=== PATIENT | female | born 1980 | race Hispanic/Latino ===

== ENCOUNTER 2017-11-24 14:12 | Emergency (ER) | payer OTHER ==
[2017-11-24] MEDS ORDERED: DiphenhydrAMINE 50 mg/ml Inj IV STA ×2 (14:53→17:26)
[2017-11-24] MEDS ORDERED: Sodium Chloride 0.9% 1,000 ML IV STA ×2 (14:53→17:26)
--- NOTE | 2017-11-24 14:55 | ED PDOC ---
HPI: Allergic Reaction Time Seen by Provider: 11/24/17 14:39 Chief Complaint (Nursing): Abdominal Pain Chief Complaint (Provider): abdominal pain and rash History Per: Patient History/Exam Limitations: no limitations Onset/Duration Of Symptoms: Hrs (x2) Current Symptoms Are (Timing): Still Present Context: Food Possible Cause: Food Associated Symptoms: Skin Rash, Itching, Redness. denies: Chest Pain Home/EMS Treatment: Other (zyrtek) Additional Complaint(s): Marjorie Boles is a 37 year old female, with no significant past medical history, who presents to the emergency department via EMS for an allergic reaction and abdominal pain associated with nausea and non-bloody diarrhea onset today. Patient states she might have a stomach virus from her daughter with similar symptoms. Around noon today, she felt nauseous and decided to get some water with lemon. After she drank the water, she felt itchy and developed a rash associated with shortness of breath, tongue and throat swelling. Patient reports she is allergic to Glyphosate and believes there might have been some in the lemon. She took Zyrtec about an hour prior to arrival with relief of shortness of breath, tongue and throat swelling. Patient states she has a history of allergies but hasn't had an episode this severe since she was a child. She denies any chest pain, vomiting, dizziness, numbness, weakness, cough , congestion, runny nose, fever or chills. No further medical complaints. No headaches. No vision changes. Abd pain is like a cramping/bubbling pain. PMD: Dr Mathur Past Medical History Reviewed: Historical Data, Nursing Documentation, Vital Signs Vital Signs: Last Vital Signs Temp 96.8 F L 11/24/17 14:13 Pulse 95 H 11/24/17 14:13 Resp 16 11/24/17 14:13 BP 94/64 L 11/24/17 14:13 Pulse Ox 96 11/24/17 14:13 - Medical History PMH: No Chronic Diseases - Surgical History Surgical History: No Surg Hx - Family History Family History: States: No Known Family Hx - Allergies Allergies/Adverse Reactions: Allergies Allergy/AdvReac Type Severity Reaction Status Date / Time No Known Allergies Allergy Verified 11/24/17 14:24 Review of Systems ROS Statement: Except As Marked, All Systems Reviewed And Found Negative Constitutional: Negative for: Fever, Chills ENT: Negative for: Nose Congestion, Mouth Swelling, Throat Swelling Respiratory: Negative for: Cough, Shortness of Breath Gastrointestinal: Positive for: Nausea, Abdominal Pain, Diarrhea (non bloody). Negative for: Vomiting Skin: Positive for: Rash (itchy ) Neurological: Negative for: Weakness, Numbness, Dizziness Physical Exam - Reviewed Nursing Documentation Reviewed: Yes Vital Signs Reviewed: Yes - Physical Exam Appears: Positive for: Non-toxic Head Exam: Positive for: ATRAUMATIC, NORMOCEPHALIC Skin: Positive for: Warm, Dry, Rash (Blanching erythema to chest, abdomen, back and face in urticarial pattern. Diffusely spreading to body in patches but no erythema from the knees down bilaterally. Non-tender, no induration or discharge.) Eye Exam: Positive for: Normal appearance, EOMI, PERRL ENT: Positive for: Normal ENT Inspection. Negative for: Other (Mouth or lip swelling) Neck: Positive for: Painless ROM, Supple Cardiovascular/Chest: Positive for: Regular Rate, Rhythm. Negative for: Murmur Respiratory: Positive for: Normal Breath Sounds (clear to auscultation bilaterally). Negative for: Respiratory Distress Gastrointestinal/Abdominal: Positive for: Normal Exam, Soft. Negative for: Tenderness Back: Negative for: L CVA Tenderness, R CVA Tenderness, Vertebral Tenderness Extremity: Positive for: Normal ROM (upper and lower extremities). Negative for : Tenderness, Deformity, Swelling Neurologic/Psych: Positive for: Alert, Oriented. Negative for: Motor/Sensory Deficits - Laboratory Results Result Diagrams: 11/24/17 15:08 11/24/17 15:08 Interpretation Of Abn Labs: 18.5 wbc, 17.5 hg, 23 bun - ECG O2 Sat by Pulse Oximetry: 96 (RA) Pulse Ox Interpretation: Normal - Progress ED Course And Treament: 1640: Feels much better. Still does not want any steroids. Tolerated PO. Wants to go home. No dyspnea, tongue or throat swelling. No pain. AAOx3. WBC increase likely from allergy and diarrhea viral infection. Disposition - Clinical Impression Clinical Impression: Diarrhea, Allergic reaction, Hypokalemia, Dehydration - Patient ED Disposition Is Patient to be Admitted: No Counseled Patient/Family Regarding: Studies Performed, Diagnosis, Need For Followup, Rx Given - Disposition Referrals: [facility] [Outside] - 11/25/17 Disposition: Routine/Home Disposition Time: 16:42 Condition: STABLE Additional Instructions: Return if not better in 3 days. Instructions: Diarrhea in Adolescents and Adults, Dehydration, Adult (DC), Hypokalemia (DC), Hives (DC) Forms: [employer] (Syriac) Medical Decision Making Medical Decision Making: Time: 14:39 Initial Impression: allergic reaction and abdominal pain Initial Plan: --BMP --CBC w/ differential --Benadryl 25 mg IV --Sodium Chloride 1,000 ml IV 1,000 mls/hr --Reevaluation Pt. refused steroids. Scribe Attestation: Documented by Van Frazier acting as a scribe for Sai Robledo MD. MD Santosibkrystina Attestation: All medical record entries made by the Scribe were at my direction and personally dictated by me. I have reviewed the chart and agree that the record accurately reflects my personal performance of the history, physical exam, medical decision making, and the department course for this patient. I have also personally directed, reviewed, and agree with the discharge instructions and disposition.
[2017-11-24] MEDS ORDERED: DiphenhydrAMINE 50 mg/ml Inj ONE (15:08)
[2017-11-24 15:30] LABS: BASO % 0.2 % (0.0-2.0); EOS # 0.1 K/uL (0.0-0.7); EOS % 0.8 % (0.0-4.0); HEMOGLOBIN 17.5 g/dL (12.0-16.0); LYMPH # 2.3 K/uL (1.0-4.3); LYMPH % 12.4 % (20.0-40.0); MEAN CELL VOLUME 96.3 fl (81.0-99.0); MEAN CORPUSCULAR HEMOGLOBIN 32.3 pg (27.0-31.0); MEAN CORPUSCULAR HGB CONC 33.6 g/dL (33.0-37.0); MEAN PLATELET VOLUME 11.6 fl (7.2-11.7); MONO # 0.6 K/uL (0.0-0.8); MONO % 3.1 % (0.0-10.0); NEUT # 15.4 K/uL (1.8-7.0); NEUT % 83.5 % (50.0-75.0); NRBC % 0.1 % (0.0-0.0); RBC 5.4 Mil/uL (3.80-5.20); RED CELL DISTRIBUTION WIDTH 13.3 % (11.5-14.5); WHITE BLOOD COUNT 18.5 K/uL (4.8-10.8)
[2017-11-24 15:31] LABS: CALCIUM 9.6 mg/dL (8.4-10.2); GFR AFRICAN-AMERICAN > 60; GFR NON-AFRICAN AMERICAN > 60
[2017-11-24 15:32] LABS: BLOOD UREA NITROGEN 23 mg/dl (7-17)
[2017-11-24] MEDS ORDERED: Potassium Chloride 20 mEq ER Tab PO ONE ×2 (16:02→17:45)
[2017-11-24 17:07] VITALS: BP 134/82; PULSE 74; RESP 17; O2SAT 100
[2017-11-24 18:05] VITALS: TEMP 98.3
== END 2017-11-24 17:59 | disposition home or self-care (01) ==
LOC: H.ER 14:12
DX: R19.7 Diarrhea, unspecified (principal); T78.40XA Allergy, unspecified, initial encounter; E87.6 Hypokalemia; E86.0 Dehydration
CPT/HCPCS: 80048; 85025; 96360; 99283; J1200; J7030